=== PATIENT | male | born 1980 | race Caucasian/White ===

== ENCOUNTER 2018-06-02 02:31 | Inpatient (IN) ==
[2018-06-02] MEDS ORDERED: ALBUTEROL 2.5 MG/3 ML NEB RESP TX PRN (05:05)
[2018-06-02] MEDS ORDERED: MAGNESIUM SULF RIDER 4 GM in PREMIX 1 EACH IV PRN (05:05)
[2018-06-02] MEDS ORDERED: MAGNESIUM SULF RIDER 2 GM in PREMIX 1 EACH IV PRN (05:05)
[2018-06-02] MEDS: SODIUM CHLORIDE 0.9% 1,000 ML IV SCH ×2 (05:32→15:17)
[2018-06-02 05:36] LABS: Basophils # 0.1 10*3/uL (0.0-0.2); Basophils % 0.3 % (0.0-0.8); Eosinophils # 0.6 10*3/uL (0.0-0.87); Eosinophils % 4.1 % (0.00-10.9); Hematocrit 24.5 VOL% (42.0-52.0); Hemoglobin 9.2 GM/DL (14.0-18.0); Immature Granulocytes % 0.7 %; Lymphocytes # 2.1 10*3/uL (1.4-4.0); Lymphocytes % 14.3 % (21.2-54.2); Mean Corpuscular HGB Conc 37.6 GM/DL (32-36); Mean Corpuscular Hemoglobin 36 PG (27-34); Mean Corpuscular Volume 96.8 FL (87-102); Mean Platelet Volume 10.8 FL (9.6-12.0); Monocytes % 7.2 % (1.7-12.7); Neutrophils # 10.5 10*3/uL (1.4-7.4); Neutrophils % 73.4 % (38.7-73.9); Platelet Count 108 T/CUMM (130-400); Red Blood Count 2.53 MC/CUMM (3.8-5.5); Red Cell Distribution Width 15.1 % (9.3-17.3); White Blood Count 14.4 T/CUMM (4-12)
[2018-06-02] MEDS: NICOTINE 21 MG/24 HR PATCH TRANSDERM SCH ×2 (05:46→09:51)
[2018-06-02] MEDS: PIPERACILLIN/TAZOBACTAM 3,375 MG in SODIUM CHLORIDE 0.9% 100 ML IV SCH ×3 (05:46→21:45)
[2018-06-02 05:51] LABS: INR 1.4; Partial Thromboplastin Time 35.2 SECS (0-40)
[2018-06-02 05:56] LABS: Lactic Acid 4.3 MMOL/L (0.4-2.0)
[2018-06-02 06:03] LABS: Ammonia 33 UMOL/L (11-32)
[2018-06-02 06:04] LABS: Albumin 2.2 G/DL (3.4-5.0); Bilirubin,Total 4.4 MG/DL (0.2-1.0); Calcium 7.6 MG/DL (8.5-10.1); Osmolality,Calculated 232.6 MOS/KG (273-304); Total Protein 5.9 G/DL (6.4-8.3)
[2018-06-02 06:06] LABS: Potassium 2.2 MMOL/L (3.5-5.1)
[2018-06-02 06:14] LABS: Platelet Estimate Adequate
[2018-06-02 06:15] LABS: Anisocytosis 1+
[2018-06-02 06:16] LABS: Basophilic Stippling Slight; Hypochromasia 1+; Macrocytosis 1+
[2018-06-02] MEDS ORDERED: SODIUM CHLORIDE 0.9% 1,000 ML IV ONE (06:28)
[2018-06-02 07:31] LABS: % Iron Saturation 76.8 % (18-50)
[2018-06-02] MEDS: POTASSIUM CHLORIDE RIDER 10 MEQ in PREMIX 1 EACH IV PRN ×8 (07:41→23:08)
[2018-06-02] MEDS ORDERED: MAGNESIUM SULF RIDER 2 GM in PREMIX 1 EACH IV ONE (08:20)
[2018-06-02 08:37] LABS: Osmolality,Calculated 236.3 MOS/KG (273-304)
[2018-06-02 08:40] LABS: Lactic Acid 1.8 MMOL/L (0.4-2.0); Potassium 2.3 MMOL/L (3.5-5.1)
[2018-06-02 09:48] LABS: Apearance,Urine CLEAR (Clear); Bacteria,Urine Occasional /HPF (Few); Bilirubin,Urine Negative (Negative); Blood, Urine Negative (Negative); Glucose,Urine (UA) Negative (Negative); Ketones,Urine Negative (Negative); Mucus,Urine Occasional /LPF (Occasional); Nitrite,Urine Negative (Negative); Protein,Urine Negative; RBC,Urine 30 /HPF (0-4); Squamous Epithelial Cell,Urine Occasional /HPF (0-10); Urine Color Yellow (Yellow); Urine Specific Gravity > 1.060 (1.001-1.035); Urine Urobilinogen < 2.0 EU/DL (0.2-1.0); WBC,Urine 1 /HPF (0-6)
[2018-06-02] MEDS ORDERED: MORPHINE 4 MG/1 ML VIAL IV PRN (09:49)
[2018-06-02] MEDS: THIAMINE INJ 100 MG, FOLIC ACID INJ 1 MG, MULTIVITAMIN INJ 10 ML in SODIUM CHLORIDE 0.9... IV SCH (09:50)
[2018-06-02 10:02] LABS: Hepatitis A Ab IgM Quant 0.07 Index; Hepatitis A Ab IgM Result Negative (Negative); Hepatitis B Core IgM Quant 0.05 Index; Hepatitis B Core IgM Result Negative (Negative); Hepatitis B Surface Ag Quant < 0.10 Index; Hepatitis B Surface Ag Result Negative (Negative); Hepatitis C Virus Ab Quant 0.28 Index; Hepatitis C Virus Ab Result Negative (Negative)
[2018-06-02] MEDS: ONDANSETRON 4 MG/2 ML VIAL IV PRN (10:15)
[2018-06-02] MEDS: PANTOPRAZOLE 40 MG VIAL IV SCH (10:17)
[2018-06-02] MEDS: metroNIDAZOLE INJ 500 MG in PREMIX 1 EACH IV SCH ×3 (10:17→20:14)
[2018-06-02] MEDS ORDERED: methylPREDNISolone SOD SUC 125 MG/2 ML VIAL IV ONE (10:37)
[2018-06-02 11:00] LABS: Barbiturates Screen,Urine Negative (Negative); Benzodiazepines Screen,Urine Negative (Negative); Cannabinoid Screen,Urine Positive (Negative); Opiate Screen,Urine Negative (Negative); Phencyclidine Screen,Urine Negative (Negative)
[2018-06-02 11:47] LABS: Calcium 6.9 MG/DL (8.5-10.1); Osmolality,Calculated 238.2 MOS/KG (273-304)
[2018-06-02 11:50] LABS: Potassium 2.4 MMOL/L (3.5-5.1)
[2018-06-02] MEDS: MORPHINE 4 MG/1 ML VIAL IV PRN ×4 (12:47→20:15)
[2018-06-02 13:57] LABS: Total Protein,Peritoneal Fluid < 1.0 G/DL
[2018-06-02 14:27] LABS: RBC,Peritoneal Fluid 278 T/CUMM
[2018-06-02 15:19] LABS: Calcium 7.4 MG/DL (8.5-10.1); Osmolality,Calculated 241.1 MOS/KG (273-304); Potassium 2.9 MMOL/L (3.5-5.1)
[2018-06-02 18:53] LABS: Neutrophils,Peritoneal Fluid 54 %
[2018-06-02 19:50] LABS: Calcium 7.1 MG/DL (8.5-10.1); Osmolality,Calculated 243.9 MOS/KG (273-304); Potassium 3.1 MMOL/L (3.5-5.1)
[2018-06-02 23:45] LABS: Calcium 6.9 MG/DL (8.5-10.1); Osmolality,Calculated 243.9 MOS/KG (273-304); Potassium 3.6 MMOL/L (3.5-5.1)
[2018-06-03] MEDS: SODIUM CHLORIDE 0.9% 1,000 ML IV SCH (02:25)
[2018-06-03] MEDS: LORazepam 2 MG/1 ML VIAL IV PRN ×3 (02:57→21:17)
[2018-06-03] MEDS: metroNIDAZOLE INJ 500 MG in PREMIX 1 EACH IV SCH ×4 (02:57→21:19)
[2018-06-03] MEDS: PIPERACILLIN/TAZOBACTAM 3,375 MG in SODIUM CHLORIDE 0.9% 100 ML IV SCH ×3 (04:33→23:25)
[2018-06-03 05:15] LABS: Cholesterol 59 MG/DL (50-200); HDL Cholesterol < 10 MG/DL (40-60); Triglycerides 31 MG/DL (2-150); VLDL CHOLESTEROL 6.2 MG/DL
[2018-06-03 05:18] LABS: Albumin 1.6 G/DL (3.4-5.0); Bilirubin,Total 3.9 MG/DL (0.2-1.0); Osmolality,Calculated 257.8 MOS/KG (273-304); Potassium 2.8 MMOL/L (3.5-5.1); Total Protein 4.2 G/DL (6.4-8.3)
[2018-06-03 05:32] LABS: Calcium 5.8 MG/DL (8.5-10.1)
[2018-06-03 06:44] LABS: Basophils % 0.1 % (0.0-0.8); Eosinophils % 0.1 % (0.00-10.9); Hematocrit 23.6 VOL% (42.0-52.0); Hemoglobin 8.4 GM/DL (14.0-18.0); Immature Granulocytes % 0.7 %; Immature Granulocytes Absolute 0.08 #; Lymphocytes # 1.4 10*3/uL (1.4-4.0); Mean Corpuscular HGB Conc 35.6 GM/DL (32-36); Mean Corpuscular Hemoglobin 36 PG (27-34); Mean Corpuscular Volume 101.3 FL (87-102); Mean Platelet Volume 11.3 FL (9.6-12.0); Monocytes # 0.4 10*3/uL (0.11-0.8); Monocytes % 3.4 % (1.7-12.7); Neutrophils # 9.7 10*3/uL (1.4-7.4); Neutrophils % 83.7 % (38.7-73.9); Platelet Count 103 T/CUMM (130-400); Red Blood Count 2.33 MC/CUMM (3.8-5.5); Red Cell Distribution Width 15.9 % (9.3-17.3); White Blood Count 11.6 T/CUMM (4-12)
[2018-06-03] MEDS: POTASSIUM CHLORIDE RIDER 10 MEQ in PREMIX 1 EACH IV PRN ×5 (06:56→11:45)
[2018-06-03] MEDS: NICOTINE 21 MG/24 HR PATCH TRANSDERM SCH (08:40)
[2018-06-03] MEDS: PANTOPRAZOLE 40 MG VIAL IV SCH (08:40)
[2018-06-03] MEDS: THIAMINE INJ 100 MG, FOLIC ACID INJ 1 MG, MULTIVITAMIN INJ 10 ML in SODIUM CHLORIDE 0.9... IV SCH (08:50)
[2018-06-03] MEDS: POTASSIUM CHLORIDE INJ 30 MEQ in SODIUM CHLORIDE 0.9% 1,000 ML IV SCH (15:48)
[2018-06-03] MEDS ORDERED: POTASSIUM CHLORIDE INJ 30 MEQ in SODIUM CHLORIDE 0.9% 1,000 ML IV SCH (16:31)
[2018-06-03] MEDS: FUROSEMIDE 40 MG TABLET PO SCH (16:40)
[2018-06-03] MEDS: SPIRONOLACTONE 50 MG TABLET PO SCH (16:40)
[2018-06-04] MEDS: metroNIDAZOLE INJ 500 MG in PREMIX 1 EACH IV SCH ×2 (03:25→09:55)
[2018-06-04 04:56] LABS: Basophils % 0.1 % (0.0-0.8); Eosinophils # 0.1 10*3/uL (0.0-0.87); Eosinophils % 0.5 % (0.00-10.9); Hematocrit 21.1 VOL% (42.0-52.0); Hemoglobin 7.6 GM/DL (14.0-18.0); Immature Granulocytes % 0.9 %; Immature Granulocytes Absolute 0.15 #; Lymphocytes # 3.3 10*3/uL (1.4-4.0); Lymphocytes % 19.7 % (21.2-54.2); Mean Corpuscular Hemoglobin 37 PG (27-34); Mean Corpuscular Volume 101.4 FL (87-102); Mean Platelet Volume 10.8 FL (9.6-12.0); Monocytes # 0.8 10*3/uL (0.11-0.8); NRBC # 0.04 10*3/uL; Neutrophils # 12.5 10*3/uL (1.4-7.4); Neutrophils % 73.8 % (38.7-73.9); Platelet Count 109 T/CUMM (130-400); Red Blood Count 2.08 MC/CUMM (3.8-5.5); White Blood Count 16.9 T/CUMM (4-12)
[2018-06-04] MEDS: PIPERACILLIN/TAZOBACTAM 3,375 MG in SODIUM CHLORIDE 0.9% 100 ML IV SCH ×2 (05:20→15:56)
[2018-06-04 05:29] LABS: Albumin 1.9 G/DL (3.4-5.0); Calcium 7.7 MG/DL (8.5-10.1); Osmolality,Calculated 251.2 MOS/KG (273-304); Potassium 3.8 MMOL/L (3.5-5.1)
[2018-06-04] MEDS ORDERED: SODIUM CHLORIDE 0.9% 1,000 ML IV PRN (07:21)
[2018-06-04] MEDS ORDERED: FUROSEMIDE 40 MG/4 ML VIAL IV PRN (07:21)
[2018-06-04] MEDS ORDERED: diphenhydrAMINE 50 MG/1 ML VIAL IV PRN (07:21)
[2018-06-04] MEDS ORDERED: ACETAMINOPHEN 325 MG TABLET PO PRN (07:21)
[2018-06-04 07:38] LABS: Albumin 1.9 G/DL (3.4-5.0); Bilirubin,Direct 1.4 MG/DL (0.0-0.20); Bilirubin,Indirect 1.6 MG/DL (0.0-1.0); Total Protein 4.8 G/DL (6.4-8.3)
[2018-06-04] MEDS: SPIRONOLACTONE 50 MG TABLET PO SCH (08:32)
[2018-06-04] MEDS: FUROSEMIDE 40 MG TABLET PO SCH (08:32)
[2018-06-04] MEDS: PANTOPRAZOLE 40 MG VIAL IV SCH (08:32)
[2018-06-04] MEDS: NICOTINE 21 MG/24 HR PATCH TRANSDERM SCH (08:33)
[2018-06-04] MEDS: THIAMINE INJ 100 MG, FOLIC ACID INJ 1 MG, MULTIVITAMIN INJ 10 ML in SODIUM CHLORIDE 0.9... IV SCH (09:55)
[2018-06-04] MEDS ORDERED: SODIUM PHOSPHATE INJ 30 MMOL in SODIUM CHLORIDE 0.9% 250 ML IV ONE (10:00)
[2018-06-04] MEDS: POTASSIUM CHLORIDE INJ 30 MEQ in SODIUM CHLORIDE 0.9% 1,000 ML IV SCH (18:27)
[2018-06-04 19:17] LABS: Hematocrit 26.5 VOL% (42.0-52.0)
[2018-06-04 19:39] LABS: Hemoglobin 9.5 GM/DL (14.0-18.0)
[2018-06-04] MEDS: LORazepam 2 MG/1 ML VIAL IV PRN (21:38)
[2018-06-05] MEDS: PIPERACILLIN/TAZOBACTAM 3,375 MG in SODIUM CHLORIDE 0.9% 100 ML IV SCH ×2 (00:21→10:22)
[2018-06-05 07:22] LABS: Basophils % 0.2 % (0.0-0.8); Eosinophils # 0.1 10*3/uL (0.0-0.87); Eosinophils % 1.4 % (0.00-10.9); Hematocrit 26.8 VOL% (42.0-52.0); Hemoglobin 9.9 GM/DL (14.0-18.0); Immature Granulocytes % 0.8 %; Immature Granulocytes Absolute 0.08 #; Lymphocytes # 3.5 10*3/uL (1.4-4.0); Lymphocytes % 34.1 % (21.2-54.2); Mean Corpuscular HGB Conc 36.9 GM/DL (32-36); Mean Corpuscular Hemoglobin 35 PG (27-34); Mean Corpuscular Volume 95.7 FL (87-102); Mean Platelet Volume 10.4 FL (9.6-12.0); Monocytes # 0.7 10*3/uL (0.11-0.8); Monocytes % 6.9 % (1.7-12.7); Neutrophils # 5.8 10*3/uL (1.4-7.4); Neutrophils % 56.6 % (38.7-73.9); Platelet Count 97 T/CUMM (130-400); Red Cell Distribution Width 18.8 % (9.3-17.3); White Blood Count 10.2 T/CUMM (4-12)
[2018-06-05 07:43] LABS: Hypochromasia 1+; Ovalocytes Slight; Platelet Estimate Decreased
[2018-06-05 07:44] LABS: Macrocytosis Slight
[2018-06-05 07:49] LABS: Albumin 1.9 G/DL (3.4-5.0); Bilirubin,Total 3.83 MG/DL (0.2-1.0); Calcium 7.2 MG/DL (8.5-10.1); Total Protein 4.8 G/DL (6.4-8.3)
[2018-06-05 07:50] LABS: Osmolality,Calculated 256.8 MOS/KG (273-304); Potassium 2.9 MMOL/L (3.5-5.1)
[2018-06-05] MEDS ORDERED: SIMETHICONE CHEW 125 MG TABLET PO PRN (09:03)
[2018-06-05] MEDS: FUROSEMIDE 40 MG TABLET PO SCH (09:08)
[2018-06-05] MEDS: PANTOPRAZOLE 40 MG VIAL IV SCH (09:08)
[2018-06-05] MEDS: SPIRONOLACTONE 50 MG TABLET PO SCH (09:08)
[2018-06-05] MEDS: NICOTINE 21 MG/24 HR PATCH TRANSDERM SCH (09:09)
[2018-06-05] MEDS: THIAMINE INJ 100 MG, FOLIC ACID INJ 1 MG, MULTIVITAMIN INJ 10 ML in SODIUM CHLORIDE 0.9... IV SCH (09:11)
[2018-06-05] MEDS ORDERED: MAGNESIUM SULF RIDER 2 GM in PREMIX 1 EACH IV PRN (10:01)
[2018-06-05] MEDS ORDERED: MAGNESIUM SULF RIDER 4 GM in PREMIX 1 EACH IV PRN (10:01)
[2018-06-05] MEDS: POTASSIUM CHLORIDE RIDER 10 MEQ in PREMIX 1 EACH IV PRN ×4 (10:42→17:57)
[2018-06-05] MEDS ORDERED: LORazepam 2 MG/1 ML VIAL IV PRN (11:30)
[2018-06-05] MEDS ORDERED: ERGOCALCIFEROL 50,000 UNIT CAPSULE PO SCH (12:00)
[2018-06-05] MEDS: MORPHINE 4 MG/1 ML VIAL IV PRN ×2 (13:36→19:36)
[2018-06-05] MEDS: chlordiazePOXIDE 25 MG CAPSULE PO SCH ×2 (15:06→22:02)
[2018-06-06] MEDS: POTASSIUM CHLORIDE RIDER 10 MEQ in PREMIX 1 EACH IV PRN ×4 (02:38→14:51)
[2018-06-06] MEDS: MORPHINE 4 MG/1 ML VIAL IV PRN ×3 (04:49→19:16)
[2018-06-06 05:58] LABS: Basophils % 0.3 % (0.0-0.8); Eosinophils # 0.3 10*3/uL (0.0-0.87); Eosinophils % 3.1 % (0.00-10.9); Hematocrit 30.7 VOL% (42.0-52.0); Hemoglobin 11.1 GM/DL (14.0-18.0); Immature Granulocytes % 0.8 %; Immature Granulocytes Absolute 0.08 #; Lymphocytes # 1.9 10*3/uL (1.4-4.0); Lymphocytes % 20.3 % (21.2-54.2); Mean Corpuscular HGB Conc 36.2 GM/DL (32-36); Mean Corpuscular Hemoglobin 35 PG (27-34); Mean Corpuscular Volume 97.2 FL (87-102); Mean Platelet Volume 10.5 FL (9.6-12.0); Monocytes # 0.7 10*3/uL (0.11-0.8); Neutrophils # 6.5 10*3/uL (1.4-7.4); Neutrophils % 68.5 % (38.7-73.9); Platelet Count 100 T/CUMM (130-400); Red Blood Count 3.16 MC/CUMM (3.8-5.5); Red Cell Distribution Width 19.1 % (9.3-17.3); White Blood Count 9.4 T/CUMM (4-12)
[2018-06-06 06:12] LABS: Calcium 7.9 MG/DL (8.5-10.1); Osmolality,Calculated 253.9 MOS/KG (273-304); Potassium 3.3 MMOL/L (3.5-5.1)
[2018-06-06] MEDS: THIAMINE 100 MG TABLET PO SCH (07:45)
[2018-06-06] MEDS: FUROSEMIDE 40 MG TABLET PO SCH (07:45)
[2018-06-06] MEDS: chlordiazePOXIDE 25 MG CAPSULE PO SCH ×3 (07:45→21:13)
[2018-06-06] MEDS: MULTIVITAMIN (CENTRUM) TABLET PO SCH (07:45)
[2018-06-06] MEDS: SPIRONOLACTONE 50 MG TABLET PO SCH (07:45)
[2018-06-06] MEDS: PANTOPRAZOLE 40 MG VIAL IV SCH (07:45)
[2018-06-06] MEDS: FOLIC ACID 1 MG TABLET PO SCH (07:45)
[2018-06-06] MEDS: NICOTINE 21 MG/24 HR PATCH TRANSDERM SCH (07:45)
[2018-06-06] MEDS ORDERED: PROPOFOL 200 MG/20 ML VIAL IV ONE (10:10)
[2018-06-06] MEDS ORDERED: LIDOCAINE 100 MG/5 ML SYRINGE ONE (10:10)
[2018-06-06] MEDS: POTASSIUM CHLORIDE 20 MEQ TABLET PO SCH ×2 (12:30→21:14)
[2018-06-06] MEDS: ONDANSETRON 4 MG/2 ML VIAL IV PRN (19:18)
[2018-06-07 05:53] LABS: Basophils % 0.4 % (0.0-0.8); Eosinophils # 0.4 10*3/uL (0.0-0.87); Eosinophils % 4.7 % (0.00-10.9); Hemoglobin 11.2 GM/DL (14.0-18.0); Immature Granulocytes % 0.8 %; Immature Granulocytes Absolute 0.07 #; Lymphocytes # 2.5 10*3/uL (1.4-4.0); Lymphocytes % 27.1 % (21.2-54.2); Mean Corpuscular HGB Conc 36.1 GM/DL (32-36); Mean Corpuscular Hemoglobin 36 PG (27-34); Mean Corpuscular Volume 99.4 FL (87-102); Mean Platelet Volume 10.6 FL (9.6-12.0); Monocytes # 0.9 10*3/uL (0.11-0.8); Monocytes % 9.5 % (1.7-12.7); Neutrophils # 5.3 10*3/uL (1.4-7.4); Neutrophils % 57.5 % (38.7-73.9); Platelet Count 100 T/CUMM (130-400); Red Blood Count 3.12 MC/CUMM (3.8-5.5); Red Cell Distribution Width 19.7 % (9.3-17.3); White Blood Count 9.2 T/CUMM (4-12)
[2018-06-07 06:27] LABS: Bilirubin,Total 2.6 MG/DL (0.2-1.0); Osmolality,Calculated 260.5 MOS/KG (273-304); Potassium 3.9 MMOL/L (3.5-5.1); Total Protein 5.2 G/DL (6.4-8.3)
[2018-06-07] MEDS: SPIRONOLACTONE 50 MG TABLET PO SCH (09:25)
[2018-06-07] MEDS: POTASSIUM CHLORIDE 20 MEQ TABLET PO SCH (09:25)
[2018-06-07] MEDS: THIAMINE 100 MG TABLET PO SCH (09:25)
[2018-06-07] MEDS: FUROSEMIDE 40 MG TABLET PO SCH (09:25)
[2018-06-07] MEDS: chlordiazePOXIDE 25 MG CAPSULE PO SCH (09:25)
[2018-06-07] MEDS: MULTIVITAMIN (CENTRUM) TABLET PO SCH (09:25)
[2018-06-07] MEDS: FOLIC ACID 1 MG TABLET PO SCH (09:25)
[2018-06-07] MEDS: PANTOPRAZOLE 40 MG VIAL IV SCH (09:26)
[2018-06-07] MEDS: NICOTINE 21 MG/24 HR PATCH TRANSDERM SCH (09:26)
[2018-06-07 10:27] VITALS: BP 100/59
== END 2018-06-07 10:31 | disposition home or self-care (01) | DRG 720 ==
LOC: N.ICU 04:10 → SUATTDRO 04:10 → N.5E 06-03 18:26
PROVIDERS: ADMIT Internal Medicine; ATTEND Hospitalist